=== PATIENT | male | born 1945 | race Caucasian/White ===

== ENCOUNTER → 2016-08-08 | Outpatient (CLI) | payer OTHER | LOC: BMCIMAGING 14:29 | PROVIDERS: ATTEND Internal Medicine | DX: Z13.820 Encounter for screening for osteoporosis (principal); M85.80 Other specified disorders of bone density and structure, unspecified site ==

== ENCOUNTER → 2016-10-25 | Outpatient (CLI) | payer OTHER | LOC: FIMAGING 17:53 | PROVIDERS: ATTEND Internal Medicine | DX: R07.89 Other chest pain (principal); M51.34 Other intervertebral disc degeneration, thoracic region; M51.35 Other intervertebral disc degeneration, thoracolumbar region; M51.36 Other intervertebral disc degeneration, lumbar region; M51.37 Other intervertebral disc degeneration, lumbosacral region; M40.204 Unspecified kyphosis, thoracic region; M43.24 Fusion of spine, thoracic region; M19.011 Primary osteoarthritis, right shoulder; M19.012 Primary osteoarthritis, left shoulder ==

== ENCOUNTER 2016-11-14 20:00 | Emergency (ER) | payer OTHER ==
[2016-11-14 20:31] VITALS: BP 156/92; PULSE 65; RESP 16; TEMP 98.4; O2SAT 93
--- NOTE | 2016-11-14 20:36 | EDPHY ---
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 He denies any other complaints besides the moderate pain and bleeding that slowed with direct pressure. No other exacerbating factors. ROS: No fevers chills or other constitutional symptoms. Cardiovascular: No pallor to the finger beyond the site of the wound. Neuro: No numbness or tingling. No difficulty moving the finger Musculoskeletal: No bony pain. No other injuries. 5 point ROS is otherwise negative. Past Medical/Surgical History: Otherwise healthy with tennis immunization sometime in the past 5 years he estimates. Smoking Status: Never smoked Physical Exam: Physical Exam Vital signs are normal. General: No acute distress Eyes: Pupils equal and react to light. Extraocular motions are intact. Lungs: No respiratory distress. Cardiac: Brisk capillary refill is intact throughout. Extremities: Atraumatic normal except for left 5th finger Left 5th finger: Patient has a 1.3 cm full-thickness laceration to the distal phalanx the 5th finger with moderate bleeding. No foreign bodies under examination. Subcutaneous tissues evident but no deeper structures are injured. Skin: No rash or pallor. Neuro: Alert with no sensorimotor deficits In the affected finger. Constitutional: Initial Vital Signs Temperature (C) 36.9 C 11/14/16 20:27 Heart Rate 65 11/14/16 20:27 Respiratory Rate 16 11/14/16 20:27 Blood Pressure 156/92 H 11/14/16 20:27 O2 Sat (%) 93 11/14/16 20:27 O2 Delivery Mode Room Air Allergies/Adverse Reactions: codeine Allergy (Verified 11/14/16 20:26) Home Medications: Medication Instructions Recorded ASPIRIN 11/14/16 HCTZ (*) 11/14/16 MDM/Departure - MDM Procedures: Digital block: After verbal consent, using a 50 50 mix of 0.5% Marcaine 2% plain lidocaine, 27 gauge needle, chlorhexidine scrub under sterile conditions- 3 injections were administered to the base of the affected finger, 8 mL with good effect. Patient tolerated this well. There were no complications. The wound is 1.5 cm full-thickness subcutaneous tissue evident but no deeper structures injured.. The wound was copiously irrigated with saline. The wound was explored for foreign bodies and none were found. The wound was prepped and draped in the normal sterile fashion. The edges were reapproximated using 4 0 Ethilon-1 interrupted suture and 5 running sutures with good hemostasis and cosmesis. The patient tolerated the procedure well.There were no complications. - Depart Disposition: Home, Routine, Self-Care Clinical Impression: Finger laceration Condition: Good Instructions: Finger Laceration (ED) Additional Instructions: Diagnosis: Finger laceration Plan: Keep the wound clean and dry for the next 2 days. No use of the finger at work for the next 2 days. Ibuprofen and/or Tylenol for pain as needed. After 2 days, remove the dressing clean the wound and then clean wound daily with warm soapy water thereafter. Return for suture removal in 10-12 days. Follow up with work comp clinic in 2-3 days for recheck of the wound. Return for any redness, discharge fevers or other concerns for infection. Referrals: NONE *PRIMARY CARE P,. [Primary Care Provider] - As per Instructions
== END 2016-11-14 21:25 | disposition home or self-care (01) ==
LOC: CED 20:00
PROC: 0HQGXZZ Repair Left Hand Skin, External Approach (ICD-10-PCS; principal; 2016-11-14)
DX: S61.217A Laceration without foreign body of left little finger without damage to nail, initial encounter (principal); W27.8XXA Contact with other nonpowered hand tool, initial encounter; Y92.69 Other specified industrial and construction area as the place of occurrence of the external cause; Y99.0 Civilian activity done for income or pay; Y93.89 Activity, other specified